=== PATIENT | male | born 1990 | race Caucasian/White ===

== ENCOUNTER 2018-09-13 02:54 | Emergency (ER) | payer MEDICAID ==
[~2018-09-13] VITALS: Ht 180.3 cm; Wt 87.4 kg
[2018-09-13 02:56] VITALS: Ht 180.3 cm; Wt 87.4 kg
[2018-09-13] MEDS ORDERED: SOD CHLORIDE 0.9% 1,000 ML IV STA (04:18)
[2018-09-13 04:19] VITALS: BP 126/89; PULSE 78; RESP 20
[2018-09-13] MEDS ORDERED: DIPHTH/TET/ACEL PERTUSS (ADULT) 0.5 ML VIAL IM* ONE (04:30)
[2018-09-13] MEDS ORDERED: AMPICILLIN/SULB 3 GM/NS (PMX) 100 ML IVPB ONE (04:30)
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
[2018-09-13] MEDS: FENTAnyl 50 MCG/ML VIAL IV ONE ×2 (04:45→04:55)
[2018-09-13] MEDS ORDERED: ACETAMINOPHEN 500 MG TAB PO STA (04:47)
== END 2018-09-13 06:33 | disposition short-term general hospital (02) ==
LOC: E/R 02:54
DX: S02.601B Fracture of unspecified part of body of right mandible, initial encounter for open fracture (principal); F17.210 Nicotine dependence, cigarettes, uncomplicated; F10.920 Alcohol use, unspecified with intoxication, uncomplicated; T79.7XXA Traumatic subcutaneous emphysema, initial encounter; Y04.2XXA Assault by strike against or bumped into by another person, initial encounter; Z23 Encounter for immunization
CPT/HCPCS: 12011; 36415; 70450; 70486; 71045; 72125; 72170; 80048; 80307; 85025; 85610; 85730; 86850; 86900; 86901; 90471; 90715; 96365; J0295; J3010; J7030; Z7502; Z7610